=== PATIENT | female | born 1930 | race Hispanic/Latino ===

== ENCOUNTER 2017-09-04 05:09 | Emergency (ER) | payer MEDICARE ==
[2017-09-04] MEDS ORDERED: ACETAMINOPHEN 325 MG TAB ONE ×2 (05:28→05:42)
[2017-09-04] MEDS ORDERED: ASPIRIN 81MG TAB.CHEW ONE ×2 (05:28→05:42)
[2017-09-04] MEDS ORDERED: SODIUM CHLORIDE 0.9% 250 ML IV ONE (05:29)
[2017-09-04 05:53] LABS: BASOPHILS % (AUTO) 2.8 % (0.0-5.0); EOSINOPHILS % (AUTO) 3.3 % (0.0-8.0); HEMATOCRIT 39.2 % (36-48); LYMPHOCYTES % (AUTO) 35.9 % (21.0-51.0); MEAN CORPUSCULAR HEMOGLOBIN 31.2 pg (27.0-33.0); MEAN CORPUSCULAR HGB CONC 33.5 g/dL (32.0-36.0); MEAN CORPUSCULAR VOLUME 93.2 fL (79-99); MONOCYTES % (AUTO) 10.5 % (3.0-13.0); NEUTROPHILS % (AUTO) 47.5 % (40.0-77.0); NUCLEATED RED BLOOD CELLS 0.1 % (0.0-0.19); PLATELET COUNT (AUTO) 188 K/uL (130-400); RED CELL DISTRIBUTION WIDTH 13.6 % (11.0-15.5); WHITE BLOOD COUNT (AUTO) 4.4 K/uL (4.8-10.8)
[2017-09-04 06:05] LABS: POTASSIUM 3.8 mmol/L (3.5-5.1)
[2017-09-04 06:09] LABS: MAGNESIUM 1.9 mg/dL (1.80-2.40); PHOSPHORUS 3.6 mg/dL (2.5-4.9)
== END 2017-09-04 06:32 | disposition home or self-care (01) ==
LOC: EDH 05:09
DX: R07.89 Other chest pain (principal); M25.512 Pain in left shoulder; E07.9 Disorder of thyroid, unspecified; E78.5 Hyperlipidemia, unspecified; I10 Essential (primary) hypertension
CPT/HCPCS: 36415; 71045; 80048; 83735; 84100; 84484; 85025; 93005; 96360; 99285; J7030